=== PATIENT | female | born 1975 | race Caucasian/White ===

== ENCOUNTER 2019-07-16 08:11 | Day surgery (SDC) | payer BC ==
[2019-07-16] MEDS ORDERED: Decadron 4 MG INJ IV ONE (08:12)
[2019-07-16] MEDS ORDERED: Xylocaine-Mpf 2% 5 Ml Vial IJ ONE (08:12)
[2019-07-16] MEDS ORDERED: Ketamine HCl 50 MG/ML ONE ×2 (10:53→11:02)
[2019-07-16] MEDS ORDERED: DIPRIVAN 200 MG/20 ML IV ONE ×2 (10:53→11:02)
--- NOTE | 2019-07-16 12:02 | XRAY ---
Indication: Left C2-C5 MBB. Intraoperative fluoroscopy was provided for 18 seconds. 2 digital spot images submitted for interpretation demonstrates posterior needle tips projecting over the expected course of the left C2-C5 nerve roots. Correlate with intraoperative findings/report.
--- NOTE | 2019-07-16 13:29 | XRAY ---
18 seconds of fluoroscopy was used in surgery for a left C2-C3, C3-C4, and C4-C5 MBB.
[2019-07-16] MEDS ORDERED: Lactated Ringers 1,000 ML IV ONE (16:01)
== END 2019-07-16 11:25 | disposition home or self-care (01) ==
LOC: SDC-PAIN 08:11
PROVIDERS: ATTEND Psychiatry & Neurology Pain Medicine
DX: M47.812 Spondylosis without myelopathy or radiculopathy, cervical region (principal); E03.9 Hypothyroidism, unspecified; Z79.899 Other long term (current) drug therapy
CPT/HCPCS: 64490; 64491; 64492; 72020; 77002; 84703; J1100; J2704

== ENCOUNTER 2020-03-31 07:48 | Day surgery (SDC) | payer BC ==
[2020-03-31] MEDS ORDERED: Depo-Medrol 40 MG/ML IM ONE (07:49)
[2020-03-31] MEDS ORDERED: BUPIVACAINE 0.5% VIAL IJ ONE (07:49)
[2020-03-31] MEDS ORDERED: Ketamine HCl 50 MG/ML ONE (12:55)
[2020-03-31] MEDS ORDERED: DIPRIVAN 200 MG/20 ML IV ONE ×2 (12:55→13:06)
[2020-03-31] MEDS ORDERED: TORAdol 30 mg Injection ONE (13:18)
--- NOTE | 2020-03-31 14:07 | XRAY ---
21 seconds fluoroscopy time in surgery for bilateral L4-S1 MBB.
--- NOTE | 2020-03-31 14:15 | XRAY ---
Indication: Bilateral L4-S1 MBB. Intraoperative fluoroscopy was provided for 21 seconds. Single digital spot image submitted for interpretation demonstrates posterior needle tips projecting over the expected course of the left and right L4-S1 nerve roots. Correlate with intraoperative findings/report.
[2020-03-31] MEDS ORDERED: Lactated Ringers 1,000 ML IV ONE (15:31)
== END 2020-03-31 13:25 | disposition home or self-care (01) ==
LOC: SDC-PAIN 07:48
PROVIDERS: ATTEND Psychiatry & Neurology Pain Medicine
DX: M47.816 Spondylosis without myelopathy or radiculopathy, lumbar region (principal); E03.9 Hypothyroidism, unspecified; Z79.899 Other long term (current) drug therapy
CPT/HCPCS: 64493; 64494; 72020; 77002; 84703; J1030; J1885; J2704

== ENCOUNTER 2020-08-11 07:34 | Day surgery (SDC) | payer BC ==
[2020-08-11] MEDS ORDERED: BUPIVACAINE 0.5% VIAL IJ ONE (07:35)
[2020-08-11] MEDS ORDERED: Depo-Medrol 40 MG/ML IM ONE (07:35)
[2020-08-11] MEDS ORDERED: Decadron 4 MG INJ IV ONE (07:35)
[2020-08-11] MEDS ORDERED: Xylocaine 1% Vial 30 ML PF IJ ONE (07:35)
[2020-08-11] MEDS ORDERED: Ketamine HCl 50 MG/ML ONE (13:12)
[2020-08-11] MEDS ORDERED: DIPRIVAN 200 MG/20 ML IV ONE ×2 (13:12→13:16)
--- NOTE | 2020-08-11 13:57 | XRAY ---
Indication: Left C2-C5 MBB. Intraoperative fluoroscopy was provided for 29 seconds. 2 digital spot images submitted for interpretation demonstrates posterior needle tips projecting over the expected left C2-C5 nerve roots. Correlate with intraoperative findings/report.
--- NOTE | 2020-08-11 13:57 | XRAY ---
29 seconds fluoroscopy time in surgery for left C2-C5 MBB.
[2020-08-11] MEDS ORDERED: Lactated Ringers 1,000 ML IV ONE (15:28)
== END 2020-08-11 13:50 | disposition home or self-care (01) ==
LOC: SDC-PAIN 07:34 → SDC 07:34 → SDC-PAIN 13:50
PROVIDERS: ATTEND Psychiatry & Neurology Pain Medicine
DX: M47.812 Spondylosis without myelopathy or radiculopathy, cervical region (principal); M72.2 Plantar fascial fibromatosis; E03.9 Hypothyroidism, unspecified; Z79.899 Other long term (current) drug therapy
CPT/HCPCS: 72020; 77002; 84703; J1030; J1100; J2001; J2704

== ENCOUNTER 2025-06-10 14:17 | Day surgery (SDC) | payer OTHER ==
[2025-06-10] MEDS ORDERED: BUPIVACAINE 0.5% VIAL IJ ONE (14:18)
[2025-06-10] MEDS ORDERED: methylPREDNISolone acetate IM ONE (14:18)
[2025-06-10] MEDS ORDERED: LIDOCAINE HCL 1% 50 MG/5 ML VL IJ ONE (14:18)
[2025-06-10 14:54] LABS: HCG URINE TEST NEGATIVE (NEGATIVE)
[2025-06-10] MEDS ORDERED: propofoL IV ONE (16:28)
[2025-06-10] MEDS ORDERED: Lactated Ringers 1,000 ML IV ONE (17:26)
--- NOTE | 2025-06-10 17:33 | XRAY ---
Indication: Lumbar ANUPAM. Intraoperative fluoroscopy provided for 12 seconds. 2 digital spot images submitted for interpretation demonstrates posterior needle tip projecting posterior to L4-L5 interspace. Small amount of contrast injected for needle tip placement. Correlate with intraoperative findings/report.
--- NOTE | 2025-06-10 17:35 | XRAY ---
12 seconds of fluoroscopy were used in surgery for a lumbar ANUPAM.
== END 2025-06-10 16:55 | disposition home or self-care (01) ==
LOC: SDC-PAIN 14:17
PROVIDERS: ATTEND Psychiatry & Neurology Pain Medicine
DX: M54.16 Radiculopathy, lumbar region (principal)